=== PATIENT | male | born 1985 | race Caucasian/White ===

== ENCOUNTER → 2016-12-30 09:58 | Outpatient (CLI) | payer BC | END | disposition home or self-care (01) | LOC: D.US 09:58 | DX: I80.9 Phlebitis and thrombophlebitis of unspecified site (principal); R60.0 Localized edema ==

== ENCOUNTER 2017-03-24 05:10 | Day surgery (SDC) | payer BC ==
[~2017-03-24] VITALS: Ht 210.8 cm; Wt 95.3 kg
[2017-03-24 07:03] VITALS: BP 121/72; Ht 210.8 cm; Wt 95.3 kg
[2017-03-24] MEDS ORDERED: HYDROCODON-ACE1 EAC7 PO (09:49)
--- NOTE | 2017-03-24 12:45 | OP ---
PATIENT NAME: TORIBIO ROQUE MEDICAL RECORD: [id number] :87 LOCATION:D.OPS ADMISSION DATE: SURGEON: LLOYD GUNN MD DATE OF OPERATION: 03/24/2017 SURGEON: Lloyd Gunn MD PREOPERATIVE DIAGNOSIS: Chronic lymphangitis, right lower extremity. POSTOPERATIVE DIAGNOSIS: Chronic lymphangitis, right lower extremity. PROCEDURE PERFORMED: Excisional biopsy of superficial right inguinal groin lymph nodes. ANESTHESIA: General. COMPLICATIONS: None. SPECIMENS: 1. A 4 x 3 x 3 cm node. 2. A 3 x 3 x 3 cm node. 3. 4 x 3 x 3 cm node. Case was clean. ESTIMATED BLOOD LOSS: 10 cc. OPERATIVE COURSE: After consent was obtained, the patient was taken to the operating room and placed in the supine position on the operating table. Next, general anesthesia was given via endotracheal intubation. After a timeout was taken to confirm the correct patient and procedure, the right groin was prepped and draped in typical sterile fashion. A 20 cc of local anesthetic were injected in the right inguinal region. The nodes were palpated. A transverse skin incision made with a 15 blade scalpel and dissection continued to the superficial fascia with electrocautery. A self-retaining retractor was then placed. All 3 nodes were circumferentially dissected using blunt dissection and electrocautery. All nodes were circumferentially dissected and sent to pathology for lymph node evaluation. Once all 3 specimens were removed, the area was copiously irrigated and suctioned. Careful attention was paid for hemostasis, which was obtained with electrocautery. The deep fascia was closed with 3-0 Vicryl suture. Superficial was closed with 3-0 Vicryl suture. The skin was closed with 4-0 Monocryl, Mastisol and Steri-Strips. At the end of the case, all needle and instrument counts were correct. No complications occurred. The patient was extubated and transferred to the PACU in stable condition. 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
--- NOTE | 2017-03-24 13:49 | NUR ---
1130--PT VOIDS WITHOUT DIFFICULTY, IV DC'D. GABRIELA OCAMPO 1145--DISCHARGE INSTRUCTIONS GIVEN, PT VERBALIZES UNDERSTANDING. PT OFF UNIT VIA WC. GABRIELA OCAMPO
--- NOTE | 2017-03-24 13:53 | NUR ---
1130--IV DC'D. GABRIELA OCMAPO 1145--DISCHARGE INSTRUCTIONS GIVEN, PT VERBALIZES UNDERSTANDING. PT OFF UNIT VIA WC. GABRIELA OCAMPO
[2017-03-25 16:13] LABS: ACID FAST SMEAR Negative (()); AFB SPECIMEN PROCESSING Concentration (())
[2017-03-26 12:16] LABS: FUNGUS STAIN Final report (())
[2017-03-31 10:20] LABS: FUNGUS MYCOLOGY CULTURE Preliminary report (())
== END 2017-03-24 11:45 | disposition home or self-care (01) ==
LOC: D.OPS 05:10 → D.PAN 08:30 → D.OPS 11:45
PROVIDERS: Surgery
DX: I89.1 Lymphangitis (principal); Z01.812 Encounter for preprocedural laboratory examination